=== PATIENT | female | born 1980 | race Caucasian/White ===

== ENCOUNTER 2024-09-15 01:07 | Inpatient (IN) | payer OTHER ==
[2024-09-15 01:39] LABS: BASOPHILS ABSOLUTE AUTO 0.07 K/uL (0.00-0.10); BASOPHILS PERCENT AUTO 0.5 % (0.1-1.3); EOSINOPHILS ABSOLUTE AUTO 0.26 K/uL (0.00-0.40); EOSINOPHILS PERCENT AUTO 1.8 % (0.0-5.4); HEMATOCRIT 42.4 % (34.3-46.0); IMMATURE GRAN ABSOLUTE AUTO 0.08 K/uL (0.00-0.23); IMMATURE GRAN PERCENT AUTO 0.5 % (0.0-0.7); LYMPHOCYTES ABSOLUTE AUTO 0.93 K/uL (0.8-3.3); LYMPHOCYTES PERCENT AUTO 6.4 % (11.4-47.7); MEAN CORPUSCULAR HEMOGLOBIN 31.1 pg (31.6-35.5); MEAN CORPUSCULAR VOLUME 94.2 fL (81.4-99.0); MONOCYTES PERCENT AUTO 5.5 % (3.3-12.6); NEUTROPHILS ABSOLUTE AUTO 12.42 K/uL (1.0-7.6); NEUTROPHILS PERCENT AUTO 85.3 % (40.0-78.1); PLATELET COUNT,PLT 249 K/uL (130-375); WHITE BLOOD CELL COUNT,WBC 14.6 K/uL (3.2-11.0)
[2024-09-15] MEDS: Ondansetron 4 MG/2 ML SDV IVPUSH ONE (01:45)
[2024-09-15] MEDS: fentaNYL 100 MCG/2 ML SDV IVPUSH ONE (01:47)
[2024-09-15 01:48] LABS: ALANINE AMINOTRANSFERASE,ALT 29 U/L (12-78); ALBUMIN 4.1 g/dL (3.4-5.0); ALKALINE PHOSPHATASE 59 U/L (46-116); ASPARTATE AMNIOTRANSFERASE,AST 29 U/L (15-37); BILIRUBIN TOTAL 0.8 mg/dL (0.2-1.0); BLOOD UREA NITROGEN,BUN 11 mg/dL (7-18); CALCIUM 9.9 mg/dL (8.5-10.1); CARBON DIOXIDE,CO2 30 mmol/L (21-32); CHLORIDE,CL 99 mmol/L (100-108); CREATININE 1.1 mg/dL (0.6-1.0); EST CRCL DRUG DOSING (CG) 49.76 mL/min; ESTIMATED GFR 64 mL/min (>60); GLUCOSE RANDOM 140 mg/dL (74-106); POTASSIUM,K 3.8 mmol/L (3.6-5.2); PROTEIN TOTAL,TP 8.1 g/dL (6.4-8.2); SODIUM,NA 137 mmol/L (140-148)
[2024-09-15] MEDS: Sodium Chloride 0.9% 10 ML Syringe FLUSH PRN (02:18)
[2024-09-15] MEDS: Iopamidol 612 MG/ML 100 ML Bottle IV PRN (02:19)
[2024-09-15] MEDS: Sodium Chloride 0.9% 80 ML IV SCH (02:19)
[2024-09-15 02:20] LABS: ANION GAP 11.8 mmol/L (5.0-14.0)
[2024-09-15] MEDS: LORazepam 2 MG/ML SDV IVPUSH ONE (02:51)
[2024-09-15 03:38] LABS: APPEARANCE,URINE SLIGHTLY CLOUDY (CLEAR); BILIRUBIN,URINE NEGATIVE (NEGATIVE); COLOR,URINE YELLOW (YELLOW); GLUCOSE,URINE NEGATIVE (NEGATIVE); KETONES,URINE TRACE mg/dL (NEGATIVE); LEUKOCYTE ESTERASE,URINE NEGATIVE (NEGATIVE); NITRITE,URINE NEGATIVE (NEGATIVE); OCCULT BLOOD,URINE TRACE-INTACT (NEGATIVE); PH,URINE 5.5 (5.0-8.0); PROTEIN,URINE NEGATIVE (NEGATIVE); UROBILINOGEN,URINE 0.2 EU/dL (0.2-1.0)
[2024-09-15 03:46] LABS: AMORPHOUS SEDIMENT,URINE FEW; BACTERIA,URINE MODERATE; EPITHELIAL CELLS,URINE MODERATE; MUCUS,URINE NOT SEEN; RBC,URINE 0-5 (0-5)
[2024-09-15] MEDS: Lidocaine 4% Top Soln 50 ML Bottle MUCMEM ONE (05:27)
[2024-09-15] MEDS ORDERED: Melatonin 3 MG Tab PO PRN (06:24)
[2024-09-15] MEDS ORDERED: Acetaminophen 325 MG Tab PO PRN (06:24)
[2024-09-15] MEDS ORDERED: Ondansetron 4 MG Tab.DIS PO PRN (06:24)
[2024-09-15] MEDS: Phenol/Sodium Phenolate Spray 180 ML Bottle MUCMEM PRN (06:36)
[2024-09-15] MEDS: Sodium Chloride 0.9% 1,000 ML IV SCH (06:37)
[2024-09-15] MEDS: Pantoprazole 40 MG Vial IVPUSH SCH (07:58)
[2024-09-15] MEDS: Ondansetron 4 MG/2 ML SDV IV PRN ×2 (09:44→14:08)
[2024-09-15] MEDS: LORazepam 2 MG/ML SDV IVPUSH PRN (10:58)
[2024-09-15] MEDS: Benzocaine/Cetylpyridinium/Menthol Lozenge MUCMEM PRN (20:27)
[2024-09-15] MEDS: HYDROmorphone 0.5 MG/0.5 ML Syringe IVPUSH PRN (20:30)
[2024-09-16 05:59] LABS: HEMOGLOBIN 11.1 g/dL (11.2-15.5); MEAN CORPUSCULAR HEMOGLOBIN 30.9 pg (31.6-35.5); MEAN CORPUSCULAR HGB CONC 32.6 g/dL (31.6-35.5); MEAN CORPUSCULAR VOLUME 94.7 fL (81.4-99.0); RED BLOOD CELL COUNT 3.59 M/uL (3.77-5.24); WHITE BLOOD CELL COUNT,WBC 10.5 K/uL (3.2-11.0)
[2024-09-16 06:16] LABS: ANION GAP 8.5 mmol/L (5.0-14.0); CALCIUM 8.3 mg/dL (8.5-10.1); CREATININE 0.7 mg/dL (0.6-1.0); EST CRCL DRUG DOSING (CG) 78.2 mL/min
[2024-09-17 05:36] LABS: ANION GAP 8.5 mmol/L (5.0-14.0); CALCIUM 8.6 mg/dL (8.5-10.1); CREATININE 0.6 mg/dL (0.6-1.0); EST CRCL DRUG DOSING (CG) 91.23 mL/min; MAGNESIUM 1.7 mg/dL (1.8-2.4)
[2024-09-17] MEDS: Magnesium Sulf/Wat 2 GM/50 mL 2 GM in Premix Bag 1 BAG IV ONE (08:29)
[2024-09-17] MEDS ORDERED: Sodium Chloride 0.9% 1,000 ML IV SCH (11:38)
[2024-09-17] MEDS ORDERED: oxyCODONE 5 MG Tab PO PRN (15:11)
[2024-09-18 06:23] VITALS: PULSE 61
[2024-09-18] MEDS ORDERED: Sodium Chloride 0.9% 10 ML Syringe IV PRN (10:19)
[2024-09-18 11:13] VITALS: BP 140/65
[2024-09-19] MEDS ORDERED: Pantoprazole 40 MG Tab.CR PO SCH (07:30)
== END 2024-09-18 14:10 | disposition home or self-care (01) | DRG 394 ==
LOC: JP.ED 01:07 → JP.MS 04:33 → OBSVTOIN 09-17 08:04
PROVIDERS: ADMIT Registered Nurse; ATTEND Internal Medicine
PROC: 0D9670Z Drainage of Stomach with Drainage Device, Via Natural or Artificial Opening (ICD-10-PCS; principal; 2024-09-17)
DX: K91.89 Other postprocedural complications and disorders of digestive system (principal); K56.7 Ileus, unspecified; K21.9 Gastro-esophageal reflux disease without esophagitis; F41.9 Anxiety disorder, unspecified; F32.A Depression, unspecified; Z88.2 Allergy status to sulfonamides; Z88.1 Allergy status to other antibiotic agents; Z91.048 Other nonmedicinal substance allergy status; Z79.899 Other long term (current) drug therapy; Z90.49 Acquired absence of other specified parts of digestive tract; Z98.890 Other specified postprocedural states; Z98.51 Tubal ligation status; Z90.710 Acquired absence of both cervix and uterus; Z90.722 Acquired absence of ovaries, bilateral; Z90.79 Acquired absence of other genital organ(s)
CPT/HCPCS: 36415; 71045; 71045-26; 74019; 74019-26; 74021; 74021-26; 74177; 80048; 80053; 81001; 83605; 83735; 85025; 85027; 96374; 96375; 96376; 99222; 99231; 99238; 99283; 99285-25; A9270-GY; G0378; J2060; J2405; J2470; J3010; J3475; Q9967